=== PATIENT | male | born 1945 | race Caucasian/White ===

== ENCOUNTER 2022-04-17 05:51 | Inpatient (IN) ==
--- NOTE | 2022-03-24 15:05 | PAT Medication Instructions ---
Medication Instructions Date of Service March 24, 2022 Home Medications Medication Instructions Recorded oxycodone-acetaminophen 5 mg-325 1 tab PO Q6H PRN pain #30 tabs 03/10/ mg tablet (Percocet) albuterol sulfate 90 mcg/actuation aerosol inhaler 2 puff inhalation QID PRN aspirin 81 mg tablet,delayed release 81 mg PO QAM cholecalciferol (vitamin D3) 25 mcg (1,000 unit) capsule 25 mcg PO BID cilostazol 100 mg tablet 100 mg PO BID fluticasone 500 mcg-salmeterol 50 mcg/dose blistr powdr for inhalation (Advair Diskus) 2 inh inhalation BID lisinopril 10 mg tablet 10 mg PO QAM pravastatin 80 mg tablet 80 mg PO HS tiotropium bromide 2.5 mcg/actuation mist for inhalation (Spiriva Respimat) 2 inh inhalation QAM oxycodone-acetaminophen 5 mg-325 mg tablet (Percocet) 1 tab PO Q6H PRN ASK your prescriber and surgeon aspirin 81 mg tablet,delayed release 81 mg PO QAM cilostazol 100 mg tablet 100 mg PO BID DO NOT take the morning of surgery cholecalciferol (vitamin D3) 25 mcg (1,000 unit) capsule 25 mcg PO BID lisinopril 10 mg tablet 10 mg PO QAM Take morning of surgery With a small sip of water, OTHERWISE NOTHING TO EAT OR DRINK AFTER MIDNIGHT: albuterol sulfate 90 mcg/actuation aerosol inhaler 2 puff inhalation QID PRN(use if needed; please bring with you to hospital day of surgery if possible) fluticasone 500 mcg-salmeterol 50 mcg/dose blistr powdr for inhalation (Advair Diskus) 2 inh inhalation BID tiotropium bromide 2.5 mcg/actuation mist for inhalation (Spiriva Respimat) 2 inh inhalation QAM oxycodone-acetaminophen 5 mg-325 mg tablet (Percocet) 1 tab PO Q6H PRN(if needed) Take evening before surgery albuterol sulfate 90 mcg/actuation aerosol inhaler 2 puff inhalation QID PRN(if needed) cholecalciferol (vitamin D3) 25 mcg (1,000 unit) capsule 25 mcg PO BID fluticasone 500 mcg-salmeterol 50 mcg/dose blistr powdr for inhalation (Advair Diskus) 2 inh inhalation BID pravastatin 80 mg tablet 80 mg PO HS oxycodone-acetaminophen 5 mg-325 mg tablet (Percocet) 1 tab PO Q6H PRN(if needed) Other Notes If you have any questions please call us at [phone] or [phone] or [phone] or [phone]
--- NOTE | 2022-03-30 13:49 | Anesthesiology Consultation ---
Date of Service March 30, 2022 Assessment & Plan (1) Encounter for pre-operative examination: - Case discussed in detail with Dr. Muñoz who advised pt acceptable to proceed from respiratory and cardiac standpoint, does not need further evaluation or testing from his standpoint prior to surgery. - COVID screening: Per assessment on 03/30/2022: Travel screen negative, no known COVID-19 positive contacts or current COVID-19 related symptoms in past 2 weeks. Pt vaccinated. To surgeon's discretion if preop COVID testing needed. Chart Review Chart Review: Acceptable Risk for Surgery and Patient seen in Pre Admission Testing Teaching & Discussion Pre-Anesthesia Teaching/Discussion Notes: Instructed NPO after midnight before surgery, except medications with 15 cc of water. Medication instructions provide d according to the PAT guidelines. History Surgery Operation Date: 04/17/22 10:20 Proposed Procedures p Left Common Femoral Endarterectomy, Stent Left Iliac Artery - Florin Simon MD Height/Weight Height: 5 ft 6 in Weight: 62.8 kg Allergies Allergy/AdvReac Type Severity Reaction Status Date / Time No Known Allergies Allergy Verified 03/23/22 15:15 Medications Home Medications Medication Instructions Recorded Confirmed Last Taken albuterol sulfate 90 mcg/actuation 2 puff inhalation QID PRN 12/30/21 03/23/22 03/09/22 16:00 aerosol inhaler shortness of breath or wheezing aspirin 81 mg tablet,delayed 81 mg PO QAM 12/30/21 03/23/22 03/09/22 08:00 release cholecalciferol (vitamin D3) 25 25 mcg PO BID 12/30/21 03/23/22 03/09/22 18:00 mcg (1,000 unit) capsule cilostazol 100 mg tablet 100 mg PO BID 12/30/21 03/23/22 03/09/22 20:00 fluticasone 500 mcg-salmeterol 50 2 inh inhalation BID 12/30/21 03/23/22 03/09/22 20:00 mcg/dose blistr powdr for inhalation (Advair Diskus) lisinopril 10 mg tablet 10 mg PO QAM 12/30/21 03/23/22 03/09/22 08:00 pravastatin 80 mg tablet 80 mg PO HS 12/30/21 03/23/22 03/09/22 08:00 tiotropium bromide 2.5 2 inh inhalation QAM 12/30/21 03/23/22 03/09/22 08:00 mcg/actuation mist for inhalation (Spiriva Respimat) oxycodone-acetaminophen 5 mg-325 1 tab PO Q6H PRN pain #30 tabs 03/10/22 03/23/22 Unknown mg tablet (Percocet) Past Medical History Medical History (Updated 03/31/22 @ 10:14 by Milvia Tran PA-C) Colon polyp COPD (chronic obstructive pulmonary disease) stable per pt, last rescue inhaler use this morning; uses rescue inhaler most days which is not new per pt Coronary artery disease Depression ETOH abuse HX Hearing loss Hyperlipidemia Hypertension controlled, stable per pt Myocardial infarction "yrs ago" denies stents Peripheral artery disease Schizophrenia, schizo-affective type PT DENIES Patient denies h/o stroke, seizures, heart failure, DM, blood clots or blood transfusions. Exercise / Class Metabolic Activity II 4-5 Yardwork/Stairs/Walk up hill (denies CP or SOB with 1 FOS) Past Family History Family History Other No known health problems Past Surgical History Surgical History History of colonoscopy polyp removed History of intravascular stent placement bilateral stents lower extremity History of lung surgery right lower lobe resection due to abcess Past Anesthesia History No Hx of Anesthesia Complications and No Family Hx of Anesthesia Complications History of PONV No Hx of PONV and No Hx of Motion Sickness Social History Smoking Status: Light tobacco smoker tobacco type: cigarettes Smoking cigarettes per day: 4 CIGS A DAY-advised Do You Dip or Chew Tobacco: No Hx Alcohol Use: Yes Alcohol type: beer alcohol intake frequency: a few times a week Alcohol Intake Frequency Comment: 4-5 BEER/WEEK CURRENTLY Hx Substance Use: No substance use type: does not use Review of Systems Patient denies chest pain, shortness of breath, dyspnea on exertion, snoring, witnessed apneas, reflux, fever, chills, cough, wheezing, or palpitations. Physical Exam Vital Signs Vitals BP 137/80 P 97 TEMP 98.4 SP02 95% on RA RESP 17 Physical Full cervical extension range of motion without pain TMD 3.5 finger breadths Mallampati Score 1 Dentition: intact, two chipped teeth lower front; upper front removable plate; denies implants, caps/crowns or loose teeth Lungs: normal respiratory effort. Diminished RLL sounds; otherwise good air movement; end expiratory wheezes throughout, no rales or rhonchi Cardiac: regular rate and rhythm, no murmurs noted Carotid arteries: negative bruit bilat Lab Results Anesthesia Preop Results Results Anesthesia Widget: WBC 5.61 K/ul (4.8-10.8) 03/30/22 Hgb 12.0 g/dl (14.0-18.0) L 03/30/22 Hct 35.7 % (40.1-51.0) L 03/30/22 Plt 355 K/uL (130-400) 03/30/22 Na 136 mmol/L (136-145) 03/30/22 K 3.9 mmol/L (3.5-5.1) 03/30/22 Cl 101 mmol/L (98-107) 03/30/22 CO2 28 mmol/L (21-32) 03/30/22 BUN 11 mg/dl (6-23) 03/30/22 Creat 0.77 mg/dl (0.6-1.4) 03/30/22 Glucose Level 95 mg/dl (70-99(Fasting)) 03/30/22 PT 10.1 Seconds (9.0-12.0) 03/30/22 PTT 32.0 Seconds (21.0-31.0) H 03/30/22 INR 0.9 (0.9-1.1) 03/30/22 Blood Type O Positive 03/30/22 Antibody Screen NEGATIVE 03/30/22 Testing Electrocardiogram Date: 03/30/22 Sinus rhythm with occasional premature ventricular complexes, 96 rate bpm Left axis deviation Chest X-Ray Date: 03/30/22 Relative lucency of the right lung base is likely due to emphysema. Postoperative findings within the right lung are noted with volume loss. Old left rib fractures are present. There is no consolidation. No evidence for pulmonary edema. Cardiac size is normal. Mediastinal contours are normal. IMPRESSION: No acute cardiopulmonary findings. Emphysema Other Testing Aorta with runoff CTA 02/20/22 The heart is normal in size. Patient is status post aortobiiliac stent graft repair. There is also a right external iliac artery stent. The stents appear patent. No evidence for an abdominal aortic aneurysm. There appears to be a type II endoleak within the distal abdominal aorta from the adjacent lumbar radical best seen on image 220. However, there is no evidence for an abdominal aortic aneurysm. Extensive calcified plaque within the abdominal aorta and iliac arteries. Mild to moderate multifocal stenosis within the left external iliac artery with a focal area of greater than 50% stenosis within the mid left external iliac artery on image 298. The right external iliac artery stent is widely patent. Focal occlusion within the proximal inferior mesenteric artery with immediate reconstitution from collateral vesicles. The proximal celiac and superior mesenteric arteries are widely patent. There is mild calcified plaque within the patent bilateral renal arteries. The right common femoral artery is widely patent. Moderate to severe calcified plaque within the right superficial femoral artery demonstrating areas of mild to moderate multifocal stenosis. There is also a focal area of high-grade stenosis due to the severe calcified plaque within the distal right superficial femoral artery in image 597. This demonstrates up to 90% stenosis. Mild scattered calcified plaque within the right popliteal, anterior tibial, posterior tibial, and peroneal arteries without significant stenosis or occlusion. Up to 75% focal stenosis within the left common femoral artery best seen on image 351 due to the extensive calcified plaque. Focal high-grade stenosis at the left common femoral bifurcation of up to 80%. Scattered calcified plaque within the left superficial femoral artery demonstrating up to 80% stenosis within the distal left superficial femoral femoral artery best seen image 595. Focal area of 50% stenosis within the proximal left popliteal artery on image 728 due to the calcified plaque. Mild scattered calcified plaque within the anterior tibial, posterior tibial, and peroneal arteries without high-grade stenosis or occlusion. A few linear scarlike densities at the right lung base. No suspicious lytic are blastic osseous lesions. There are 2 hypodense lesions within the left hepatic lobe with the largest measuring 9 mm. These are technically too small to characterize but favor cysts. The spleen, adrenal glands, pancreas, gallbladder, and kidneys are suboptimally assessed due to the motion artifact but appears to be unremarkable. No hydronephrosis. No retroperitoneal lymphadenopathy. No pelvic free fluid. Mild bladder wall thickening. This is likely due to chronic outlet obstruction from the enlarged prostate gland. No bowel wall thickening or obstruction. Normal appendix. Moderate well-formed stool within the colon. IMPRESSION: 1. Status post aortobiiliac stent graft repair. The stent appears patent. There is evidence for a type II endoleak within the aorta. However, the abdominal aorta remains normal in caliber. 2. Focal area of high-grade stenosis within the distal right superficial femoral artery of approximately 90%. 3. Multifocal areas of stenosis within the left common femoral and left superficial femoral artery of up to 80% as described above. 4. No high-grade stenosis or occlusion within the bilateral calf arteries. 5. Additional findings as described above. LE duplex artery 01/09/22 1. Extensive atherosclerotic disease with monophasic waveforms, no elevated velocities are seen, however decreased velocities in parvus tardus morphology are seen most prominently in the calf vessels. 2. Ankle brachial indices indicating moderate stenosis on the right and severe stenosis on the left.
[2022-04-17] MEDS ORDERED: LACTATED RINGER'S 1,000 ML IV SCH (06:00)
[2022-04-17] MEDS ORDERED: ceFAZolin 1000MG 1,000 MG/7.5 ML SYR IV SCH (06:00)
[2022-04-17] MEDS ORDERED: fentaNYL citrate 100 MCG/2 ML VIAL ONE ×2 (06:58→09:55)
[2022-04-17] MEDS ORDERED: BUPIVACAINE 0.5 % 5 MG/1 ML MPF 30ML VIAL ONE (07:10)
[2022-04-17] MEDS ORDERED: HEPARIN SOD (PORCINE) 5,000 UNITS/ML VIAL ONE (07:10)
[2022-04-17] MEDS ORDERED: ceFAZolin 330 MG/ML 1 GM VIAL ONE (07:11)
[2022-04-17] MEDS ORDERED: LIDOCAINE 1%/EPINEPHRINE 1:100,000 50 ML VIAL ONE (07:11)
[2022-04-17] MEDS ORDERED: THROMBIN 5000 UNITS KIT ONE (07:11)
[2022-04-17] MEDS ORDERED: GELATIN SPONGE SZ 100 ONE (07:11)
[2022-04-17] MEDS ORDERED: THROMBIN FOR SOLN 20000 UNIT KIT ONE ×2 (07:22→07:56)
--- NOTE | 2022-04-17 07:22 | History & Physical Report ---
Date of Service April 17, 2022 Assessment & Plan (1) Peripheral arterial disease: Plan: Patient for a right common femoral artery endarterectomy and stenting of left iliac artery. I have discussed the risks options and benefits of the procedure with the patient. The patient understands the risks options and benefits and agrees to the procedure. History of Present Illness Chief Complaint: Bialteral claudication Primary Care Provider: Michael Armijo, [employer] Mr. Mcnair is an elderly male who presented as a new patient in consultation for peripheral arterial disease and left leg pain. Patient states that he underwent a procedure in 2018 at the [facility] to "open up the arteries in his right leg." According to records provided by the referring provider, patient underwent a right common femoral artery endarterectomy, as well as bilateral kissing iliac stents. According to the patient he never had a follow-up visit there, and his stents were never looked at since his procedure. He states that he was doing fine and his right leg claudication symptoms had improved considerably since his procedure, until about 8 months ago when he began to develop severe pain in his left leg. Patient describes this pain as constant, but worse when standing for long periods of time, and when walking. He states after walking only a short distance, he has to stop and rest for about 5 minutes and then is able to walk again. He states the pain never completely goes away but does reduce somewhat when he rests. He states that the pain is there 24 hours a day and does keep him awake at night and the pain runs from his groin all the way to his foot. He describes this as a toothache. He states it is not better or worse with any position or when elevating his leg. He denies any discoloration of the feet or toes, nonhealing wounds or ulcerations. He admits some occasional tingling in the leg, but denies particular numbness. He denies headache, fever, chest pain, shortness of breath, dizziness, abdominal pain, nausea, vomiting, rest pain, other concerns. He was seen by interventional car diology at the [facility] about a week ago, and advised that he would not benefit from endovascular treatment of the occluded left common iliac stent. He had an arteriogram which showed a right common femoral artery stenosis and left iliac artery stenosis Allergies Allergy/AdvReac Type Severity Reaction Status Date / Time No Known Allergies Allergy Verified 04/17/22 06:28 Home Medications Medication Instructions Recorded Confirmed Type albuterol sulfate 90 mcg/actuation 2 puff inhalation QID PRN 12/30/21 04/17/22 History aerosol inhaler shortness of breath or wheezing aspirin 81 mg tablet,delayed 81 mg PO QAM 12/30/21 04/17/22 History release cholecalciferol (vitamin D3) 25 25 mcg PO BID 12/30/21 04/17/22 History mcg (1,000 unit) capsule cilostazol 100 mg tablet 100 mg PO BID 12/30/21 04/17/22 History fluticasone 500 mcg-salmeterol 50 2 inh inhalation BID 12/30/21 04/17/22 History mcg/dose blistr powdr for inhalation (Advair Diskus) lisinopril 10 mg tablet (Zestril) 10 mg PO QAM 12/30/21 04/17/22 History pravastatin 80 mg tablet 80 mg PO HS 12/30/21 04/17/22 History tiotropium bromide 2.5 2 inh inhalation QAM 12/30/21 04/17/22 History mcg/actuation mist for inhalation (Spiriva Respimat) Past Med/Surg History Medical History Colon polyp COPD (chronic obstructive pulmonary disease) stable per pt, last rescue inhaler use this morning; uses rescue inhaler most days which is not new per pt Coronary artery disease Depression ETOH abuse HX Hearing loss Hyperlipidemia Hypertension controlled, stable per pt Myocardial infarction "yrs ago" denies stents Peripheral artery disease Schizophrenia, schizo-affective type PT DENIES Surgical History History of colonoscopy polyp removed History of intravascular stent placement bilateral stents lower extremity History of lung surgery right lower lobe resection due to abcess Family History Other No known health problems Social History Smoking Status: Current every day smoker Cigarettes Per Day: 4-5 per day; Second Hand Exposure: No; Do You Dip or Chew Tobacco: No; Hx Alcohol Use: Yes Alcohol type: beer Hx Substance Use: No Preferred Language: Venezuelan Communication Ability: Effective Hearing Ability: Use of Hearing Aid Hide Cleaner Required: No Beliefs That Will Affect Care: None Current Living Situation: Significant Other Current Living Situation Comment: Rachel- girlfriend current occupational status: retired Other Information That Helps Us Care for You: No Feels Safe at Home: Yes Safety Concerns: Feels Safe At This Time Assistive Devices: None Review of Systems All systems reviewed & are unremarkable except as noted in HPI & below Physical Exam Physical Exam: Constitutional: In general patient is a mildly chronically ill- appearing elderly male no distress. He is alert and oriented without any deficits. He is somewhat hard of hearing. His head is normocephalic and atraumatic. His carotids do not demonstrate a bruit. His heart is regular, his lungs are significantly decreased throughout with coarse breath sounds and expiratory wheezing. His abdomen is soft nontender with normoactive bowel sounds in all 4 quadrants. I am unable to appreciate a pulsatile mass. Brachial and radial pulses are +3. Right femoral pulse is +2. Left femoral pulse is nonpalpable. Right DP pulse is +1. PT is nonpalpable. Left foot pulses are nonpalpable. He has brisk capillary refill and warm pink toes bilaterally Results & Data ([facility]) Vital Signs (Past 12 Hours) Vital Signs Temp Pulse Resp BP BP Pulse Ox O2 Del Method 04/17/22 06:32 36.4 C L 101 H 20 150/79 H 145/84 H 97 Room Air 04/17/22 06:32 Room Air
[2022-04-17] MEDS ORDERED: ONDANSETRON INJ 2 MG/ML 2 ML VIAL IV PRN ×2 (07:24→13:50)
[2022-04-17] MEDS ORDERED: ATROPINE SULFATE 0.1 MG/ML 10ML SYR IV PRN (07:24)
[2022-04-17] MEDS ORDERED: PROMETHAZINE HCL 6.25 MG in SODIUM CHLORIDE 0.9% 50 ML IV PRN (07:24)
[2022-04-17] MEDS ORDERED: ePHEDrine sulfate 50 MG/ML AMP IV PRN (07:24)
[2022-04-17] MEDS ORDERED: PROPOFOL IV EMULSION 10 MG/ML 20 ML VIAL IV ONE (08:39)
[2022-04-17] MEDS ORDERED: LIDOCAINE 2% MPF LOCAL 5 ML VIAL INFIL ONE (08:39)
[2022-04-17] MEDS ORDERED: GLYCOPYRROLATE 0.2 MG/ML VIAL ONE (08:39)
[2022-04-17] MEDS ORDERED: ROCURONIUM BROMIDE 10 MG/ML 5 ML VIAL IV ONE ×3 (08:39→10:41)
[2022-04-17] MEDS ORDERED: NEOSTIGMINE METHYLSULFATE 1 MG/ML 10ML VIAL ONE (08:39)
[2022-04-17] MEDS ORDERED: ONDANSETRON INJ 2 MG/ML 2 ML VIAL ONE (08:39)
[2022-04-17] MEDS ORDERED: LARYING-O-JET KIT (LTA) ONE (08:39)
[2022-04-17] MEDS ORDERED: VISIPAQUE IV ONE ×2 (08:46→10:51)
[2022-04-17] MEDS ORDERED: ALBUTEROL HFA INHALER 8.5 GM ONE (09:40)
[2022-04-17] MEDS ORDERED: PHENYLEPHRINE HCL 10 MG/ML VIAL ONE (09:43)
[2022-04-17] MEDS ORDERED: HEPARIN SOD (PORCINE) 1000 UNIT/ML ONE (09:46)
[2022-04-17] MEDS ORDERED: SURGICEL ABSORB HEMOSTAT 2IN X 14IN TOP ONE (11:24)
[2022-04-17] MEDS ORDERED: PROTAMINE SULFATE 10 MG/ML 5 ML VIAL ONE (11:30)
--- NOTE | 2022-04-17 11:55 | Operative Report ---
Post Operative Report Pre & Post Diagnosis Operation Date: 04/17/22 08:05 Pre-Op Diagnosis: Left Iliac Occlusion, Left Common Femoral Occlusio Post-Op Diagnosis: Left Iliac Occlusion, Left Common Femoral Occlusio I identified the patient and participated in the time-out.: Yes Procedure Operation Date: 04/17/22 08:05 Actual Procedures p Left Common Femoral Endarterectomy, Stent Left External Iliac Artery(Left) - Florin Simon MD Surgeon Florin Simon MD Professor Of Violin Alejo,PAC Estimated Blood Loss 150 Findings Consistent with Post-Op Diagnosis Specimens none Anesthesia Type General Complications none Disposition Accompanied Patient To Recovery: No Disposition: Recovery Room Description of Procedure This is a 77-year-old gentleman who presented with severe claudication left lower extremity. He had bilateral iliac stents done in the past. Recent arteriography revealed the very tight stenosis of the left external iliac artery and occluded left common femoral artery. Endarterectomy the common femoral artery and stenting of the iliac was recommended. I have discussed the risks options and benefits of the procedure with the patient. The patient understands the risks options and benefits and agrees to the procedure. I attest to the content of the Intraoperative Record and any orders documented therein. Any exceptions are noted below.
[2022-04-17] MEDS: fentaNYL citrate 100 MCG/2 ML VIAL IV PRN ×2 (12:22→12:30)
--- NOTE | 2022-04-17 12:52 | Anesthesiology Progress Note ---
Date of Service April 17, 2022 Anesthesia Post Procedure Vital Signs Vital Signs: Temp Pulse Pulse Resp BP BP Pulse Ox 04/17/22 12:30 81 20 146/84 H 100 04/17/22 12:40 87 14 145/78 H 98 04/17/22 12:20 82 16 141/99 H 100 04/17/22 12:12 37 C 85 22 153/97 H 100 04/17/22 06:32 36.4 C L 101 H 20 150/79 H 145/84 H 97 04/17/22 06:32 O2 Del Method O2 Flow Rate 04/17/22 12:30 Oxymask 5 04/17/22 12:40 Oxymask 2 04/17/22 12:20 Oxymask 5 04/17/22 12:12 Oxymask 11 04/17/22 06:32 Room Air 04/17/22 06:32 Room Air Transfer of Care Handoff Completed per policy Notes Mental Status: alert / awake / arousable Patient Amnestic to Procedure: Yes Nausea / Vomiting: adequately controlled Pain: adequately controlled Airway Patency, RR, SpO2: stable & adequate BP & HR: stable & adequate Hydration State: stable & adequate Anesthetic Complications: no major complications apparent
[2022-04-17 13:10] LABS: Basophils # (auto) 0.06 K/uL (0-0.2); Basophils % (auto) 0.9 %; Eosinophils # (auto) 0.04 K/uL (0-0.50); Eosinophils % (auto) 0.6 %; Hematocrit (blood only) 30.4 % (40.1-51.0); Hemoglobin 10.5 g/dl (14.0-18.0); Immature Granulocytes # (auto) 0.04 K/uL (0.00-0.02); Immature Granulocytes % (auto) 0.6 %; Lymphocytes # (auto) 1.13 K/uL (1.2-3.4); Lymphocytes % (auto) 16.8 %; Mean Corpuscular Hemoglobin 32.6 pg (25.0-34.0); Mean Corpuscular Hgb Conc 34.5 g/dL (32.0-36.0); Mean Corpuscular Volume 94.4 fL (80.0-100.0); Mean Platelet Volume 8.8 fL (9.4-12.4); Monocytes # (auto) 0.57 K/uL (0.24-0.82); Monocytes % (auto) 8.5 %; Neutrophils % (auto) 72.6 %; Platelet Count 263 K/uL (130-400); RDW Coefficient of Variation 14.2 % (11.5-14.5); RDW Standard Deviation 48.8 fL (36.4-46.3); Red Blood Count 3.22 M/uL (4.63-6.08); White Blood Count 6.74 K/ul (4.8-10.8)
[2022-04-17] MEDS ORDERED: MoRPHine SULFATE 4 MG/ML 1 ML CARP\\VIAL IV PRN (13:50)
[2022-04-17] MEDS ORDERED: ALBUTEROL HFA 8 GM INHALER INH PRN (13:50)
[2022-04-17] MEDS: D5W AND 1/2NSS 1,000 ML IV SCH ×2 (14:23→21:36)
[2022-04-17] MEDS: oxyCODONE/ACETAMINOPHEN 5mg/325mg TAB PO PRN ×2 (15:36→21:32)
[2022-04-17] MEDS: ceFAZolin 1000MG 1,000 MG/7.5 ML SYR IV SCH (15:38)
--- NOTE | 2022-04-17 18:59 | Critical Care Consultation ---
Date of Consultation April 17, 2022 Assessment & Plan (1) Peripheral arterial disease: Impression: 77-year-old male presents to the ICU status post left common femoral endarterectomy with stent to the left external iliac artery for left iliac and common femoral artery occlusion. Neuro - [facility] ICU: Negative Cardiac - CADcontinue ASA, lisinopril, statin PADpatient found to have severe claudication of left lower extremity and had bilateral iliac stents done in the past. Now status post left common femoral endarterectomy with stent to the left external iliac artery -Management per surgical team -Continue cilostazol, ASA, statin -Percocet, morphine as needed Respiratory - COPDcurrently maintaining oxygen saturation on 2 L nasal cannula. Patient reports active smoking. Encourage cessation. Continue nebs as prescribed GI - Clear liquid diet RENAL/LYTES - D5 half NS at 125 mL/h - Strict I's and O's ENDO - No history of diabetes without disease, ICU hyperglycemic protocol HEME - No signs of bleeding, EBL 150. Follow-up CBC in a.m. ID - Continue empiric cefazolin LINES/IV ACCESS - Peripheral IV DVT PROPHYLAXIS - SCDs, Lovenox Thank you for allowing us to participate in the care of this patient. Please refer to my attending physician's documentation for any further recommendations. History of Present Illness Attending Physician: Florin Simon MD History of Present Illness Patient is a 77-year-old male who was recently found to have severe claudication of the left lower extremity due to PAD. He has had bilateral iliac stents done in the past but recent arterial graft revealed stenosis of the left external iliac artery and occluded left common femoral artery. Today he presents to the ICU postop for a scheduled left common femoral endarterectomy with stent to the left external [place] iliac artery per vascular surgery. On arrival to the ICU the patient is alert and oriented and hemodynamically stable. He reports mild pain to the left groin at the site of the surgery. He reports normal sensation to the left lower extremity. He denies any headache, dizziness, recent illness or fevers, cough or congestion, sore throat, abdominal pain, shortness of breath, chest pain or palpitations, nausea vomiting or diarrhea. Patient to be managed in the ICU overnight for now. Allergies Allergy/AdvReac Type Severity Reaction Status Date / Time No Known Allergies Allergy Verified 04/17/22 06:28 Home Medications Medication Instructions Recorded Confirmed Type albuterol sulfate 90 mcg/actuation 2 puff inhalation QID PRN 12/30/21 04/17/22 History aerosol inhaler shortness of breath or wheezing aspirin 81 mg tablet,delayed 81 mg PO QAM 12/30/21 04/17/22 History release cholecalciferol (vitamin D3) 25 25 mcg PO BID 12/30/21 04/17/22 History mcg (1,000 unit) capsule cilostazol 100 mg tablet 100 mg PO BID 12/30/21 04/17/22 History fluticasone 500 mcg-salmeterol 50 2 inh inhalation BID 12/30/21 04/17/22 History mcg/dose blistr powdr for inhalation (Advair Diskus) lisinopril 10 mg tablet (Zestril) 10 mg PO QAM 12/30/21 04/17/22 History pravastatin 80 mg tablet 80 mg PO HS 12/30/21 04/17/22 History tiotropium bromide 2.5 2 inh inhalation QAM 12/30/21 04/17/22 History mcg/actuation mist for inhalation (Spiriva Respimat) Patient History Medical History (Updated 04/17/22 @ 19:12 by RACHANA Alvares) Colon polyp COPD (chronic obstructive pulmonary disease) stable per pt, last rescue inhaler use this morning; uses rescue inhaler most days which is not new per pt Coronary artery disease Depression ETOH abuse HX Hearing loss Hyperlipidemia Hypertension controlled, stable per pt Myocardial infarction "yrs ago" denies stents Peripheral artery disease Schizophrenia, schizo-affective type PT DENIES Surgical History History of colonoscopy polyp removed History of intravascular stent placement bilateral stents lower extremity History of lung surgery right lower lobe resection due to abcess Family History Other No known health problems Social History (Updated 04/17/22 @ 07:24 by Owen Verma MD) Smoking Status: Current every day smoker Cigarettes Per Day: 4-5 per day; Second Hand Exposure: No; Do You Dip or Chew Tobacco: No; Hx Alcohol Use: Yes Alcohol type: beer Hx Substance Use: No Preferred Language: Maori Communication Ability: Effective Hearing Ability: Use of Hearing Aid Chiller Hand Required: No Beliefs That Will Affect Care: None Current Living Situation: Significant Other Current Living Situation Comment: Rachel- girlfriend current occupational status: retired Other Information That Helps Us Care for You: No Feels Safe at Home: Yes Safety Concerns: Feels Safe At This Time Assistive Devices: None Review of Systems Review of Systems: All systems reviewed & are unremarkable except as noted in HPI & below Physical Exam Constitutional: cooperative and comfortable; no acute distress Eyes: PERRL, conjunctivae normal, anicteric sclerae ENMT: external ear and nose normal, oropharynx normal Neck: trachea midline, no thyromegaly Respiratory: no respiratory distress, no labored breathing and no cough Bilateral wheezes auscultated. Symmetrical chest wall movement. No stridor Cardiovascular: RRR, no murmur, no edema Vessels: no JVD Extremities: normal capillary refill; no edema Gastrointestinal (Abdomen): normal bowel sounds, soft, nontender, no hepatosplenomegaly Musculoskeletal: no cyanosis or clubbing, extremities motor strength 5/5 Skin: no rashes, warm and dry Neurologic: PERRL, EOMI, accommodation nl, no face palsy, no dysarthria Psychiatric: A+Ox3, euthymic affect Results & Data Results & Data ([facility]) Vital Signs (Past 12 Hours) Vital Signs Temp Pulse Pulse Resp BP BP Pulse Ox 04/17/22 18:00 94 H 22 98 04/17/22 18:00 132/81 04/17/22 17:44 103 H 24 98 04/17/22 17:44 138/85 04/17/22 17:00 100 H 21 99 04/17/22 17:00 136/85 04/17/22 16:30 156/92 H 04/17/22 16:30 105 H 17 96 04/17/22 16:00 97 H 15 98 04/17/22 16:00 167/104 H 04/17/22 16:00 04/17/22 15:30 96 H 15 100 04/17/22 15:30 166/90 H 04/17/22 15:00 97 H 17 100 04/17/22 15:00 170/98 H 04/17/22 14:30 96 H 16 98 04/17/22 14:30 148/83 H 04/17/22 14:00 04/17/22 14:00 89 17 132/71 95 04/17/22 14:00 36.7 C 04/17/22 13:30 36.7 C 97 H 20 162/89 H 98 04/17/22 13:20 77 18 156/90 H 98 04/17/22 13:10 89 16 152/92 H 97 04/17/22 13:00 81 16 153/89 H 96 04/17/22 12:50 36.6 C 88 21 146/94 H 92 04/17/22 12:30 81 20 146/84 H 100 04/17/22 12:40 87 14 145/78 H 98 04/17/22 12:20 82 16 141/99 H 100 04/17/22 12:12 37 C 85 22 153/97 H 100 Pulse Ox O2 Del Method O2 Del Method O2 Flow Rate O2 Flow Rate 04/17/22 18:00 04/17/22 18:00 04/17/22 17:44 04/17/22 17:44 04/17/22 17:00 04/17/22 17:00 04/17/22 16:30 04/17/22 16:30 04/17/22 16:00 04/17/22 16:00 04/17/22 16:00 99 Nasal Cannula 2 04/17/22 15:30 04/17/22 15:30 04/17/22 15:00 04/17/22 15:00 04/17/22 14:30 04/17/22 14:30 04/17/22 14:00 Nasal Cannula 2 04/17/22 14:00 Nasal Cannula 2 04/17/22 14:00 04/17/22 13:30 Nasal Cannula 2 04/17/22 13:20 Nasal Cannula 2 04/17/22 13:10 Nasal Cannula 2 04/17/22 13:00 Nasal Cannula 2 04/17/22 12:50 Room Air 04/17/22 12:30 Oxymask 5 04/17/22 12:40 Oxymask 2 04/17/22 12:20 Oxymask 5 04/17/22 12:12 Oxymask 11 Coding Level of Care Code 00358 Inpt Consult Level 3 Diagnoses Peripheral arterial disease I73.9
[2022-04-17] MEDS: CHOLECALCIFEROL 1,000 UNITS 25 MCG TAB PO SCH (21:33)
[2022-04-17] MEDS: cilostazoL 100 MG TAB PO SCH (21:33)
[2022-04-17] MEDS: PRAVASTATIN SOD 40 MG TAB PO SCH (21:34)
[2022-04-18] MEDS: ceFAZolin 1000MG 1,000 MG/7.5 ML SYR IV SCH (00:28)
[2022-04-18 06:09] LABS: Basophils # (auto) 0.04 K/uL (0-0.2); Basophils % (auto) 0.4 %; Eosinophils # (auto) 0.02 K/uL (0-0.50); Eosinophils % (auto) 0.2 %; Hemoglobin 10.6 g/dl (14.0-18.0); Immature Granulocytes # (auto) 0.03 K/uL (0.00-0.02); Immature Granulocytes % (auto) 0.3 %; Lymphocytes # (auto) 1.17 K/uL (1.2-3.4); Mean Corpuscular Hgb Conc 34.2 g/dL (32.0-36.0); Mean Corpuscular Volume 93.7 fL (80.0-100.0); Mean Platelet Volume 8.8 fL (9.4-12.4); Monocytes # (auto) 1.03 K/uL (0.24-0.82); Monocytes % (auto) 11.4 %; Neutrophils # (auto) 6.74 K/uL (1.4-6.5); Neutrophils % (auto) 74.7 %; Platelet Count 249 K/uL (130-400); RDW Standard Deviation 48.7 fL (36.4-46.3); Red Blood Count 3.31 M/uL (4.63-6.08); White Blood Count 9.03 K/ul (4.8-10.8)
[2022-04-18 06:45] LABS: BUN Creatinine Ratio 12.1 (10-20); Calcium 8.2 mg/dl (8.5-10.1); Creatinine Clr Calc Pharmacy 83.1 ml/min; Est GFR (African American) 107.3 ml/min; Est GFR (Non-African American) 92.6 ml/min; Potassium 3.6 mmol/L (3.5-5.1)
[2022-04-18] MEDS: oxyCODONE/ACETAMINOPHEN 5mg/325mg TAB PO PRN ×2 (07:53→23:02)
--- NOTE | 2022-04-18 08:31 | Surgery Progress Note ---
Date of Service April 18, 2022 Assessment & Plan (1) Aortoiliac occlusive disease: Plan: POD #1 after L comm fem endarterectomy with patch and L ext iliac stenting. Doing well post op. Mildly tachy at 102, but asymtpomatic. other vss. Has ambulated to BR with walker. Will have pt eval by OT/PT today. Possible d/c tomorrow. (2) Peripheral arterial disease: Plan: See above Admission and Anticipated Discharge Date Admission Date: April 17, 2022 Subjective 77 yo m POD #1 after L common femoral endarterectomy with bovine patch and stenting of L external iliac artery, seen in f/u today. Pt admits pain in L groin. Denies DODGE, chest pain, SOB, abd pain, N/V, lower leg or foot pain. No other new complaints. Review of Systems Review of Systems: All systems reviewed & are unremarkable except as noted in HPI & below Physical Exam Constitutional: WD/WN, vitals as above healthy appearing; not in distress Respiratory: normal respiratory effort; no respiratory distress Auscultation: + diminished lung sounds and + wheezes Cardiovascular: Rate/Rhythm: regular rhythm and + tachycardic (mildly tachycardic) Vessels: posterior tibial pulses present (LLE +1); + abnormal peripheral pulses Extremities: normal capillary refill; no edema Gastrointestinal (Abdomen): Inspection/Auscultation: abdomen normal to inspection and normal bowel sounds Percussion/Palpation: abdomen soft; abdomen nontender Musculoskeletal: no cyanosis or clubbing, extremities motor strength 5/5 Skin: + incision (prevena vac to L groin incision functioning appropriately.) R groin puncture soft, no hematoma. Psychiatric: A+Ox3, euthymic affect Results & Data ([facility]) Vital Signs (Past 12 Hours) Vital Signs Temp Pulse Resp BP Pulse Ox Pulse Ox O2 Del Method 04/18/22 08:00 99 Nasal Cannula 04/18/22 06:00 102 H 15 91 04/18/22 06:00 116/71 04/18/22 05:30 98 H 14 97 04/18/22 05:30 125/76 04/18/22 05:00 97 H 18 100 04/18/22 05:00 123/84 04/18/22 04:30 127/78 04/18/22 04:30 96 H 13 97 04/18/22 04:00 116 H 19 90 04/18/22 04:00 36.8 C 145/98 H 04/18/22 03:30 98 H 14 88 L 04/18/22 03:30 124/76 04/18/22 03:00 96 H 19 98 04/18/22 03:00 141/87 H 04/18/22 02:31 182/109 H 04/18/22 02:31 109 H 24 97 04/18/22 02:00 98 H 15 96 04/18/22 02:00 126/80 04/18/22 01:30 95 H 15 99 04/18/22 01:30 133/80 04/18/22 01:00 105 H 15 97 04/18/22 01:00 131/84 04/18/22 00:30 36.6 C 138/84 04/18/22 00:30 101 H 21 98 04/18/22 00:00 102 H 16 91 04/18/22 00:00 125/78 04/17/22 23:30 127/77 04/17/22 23:30 104 H 17 91 04/17/22 23:01 109 H 26 H 94 04/17/22 23:01 125/88 04/17/22 23:00 109 H 19 92 04/17/22 22:30 98 H 22 94 04/17/22 22:30 125/77 04/17/22 22:00 101 H 21 93 04/17/22 22:00 129/78 04/17/22 21:30 104 H 26 H 94 04/17/22 21:30 129/82 04/17/22 21:00 98 H 16 91 04/17/22 21:00 127/79 04/17/22 20:30 125/78 04/17/22 20:30 92 H 21 94 04/18/22 00:00 98 H 04/17/22 23:59 97 Nasal Cannula O2 Flow Rate 04/18/22 08:00 2 04/18/22 06:00 04/18/22 06:00 04/18/22 05:30 04/18/22 05:30 04/18/22 05:00 04/18/22 05:00 04/18/22 04:30 04/18/22 04:30 04/18/22 04:00 04/18/22 04:00 04/18/22 03:30 04/18/22 03:30 04/18/22 03:00 04/18/22 03:00 04/18/22 02:31 04/18/22 02:31 04/18/22 02:00 04/18/22 02:00 04/18/22 01:30 04/18/22 01:30 04/18/22 01:00 04/18/22 01:00 04/18/22 00:30 04/18/22 00:30 04/18/22 00:00 04/18/22 00:00 04/17/22 23:30 04/17/22 23:30 04/17/22 23:01 04/17/22 23:01 04/17/22 23:00 04/17/22 22:30 04/17/22 22:30 04/17/22 22:00 04/17/22 22:00 04/17/22 21:30 04/17/22 21:30 04/17/22 21:00 04/17/22 21:00 04/17/22 20:30 04/17/22 20:30 04/18/22 00:00 04/17/22 23:59 2
[2022-04-18] MEDS: ENOXAPARIN INJ 30 MG/0.3 ML SYR SQ SCH ×2 (08:38→21:02)
[2022-04-18] MEDS: ASPIRIN 81 MG ECTAB PO SCH (08:40)
[2022-04-18] MEDS: CHOLECALCIFEROL 1,000 UNITS 25 MCG TAB PO SCH ×2 (08:41→21:01)
[2022-04-18] MEDS: FLUTICASONE/VILANTEROL 200/25MCG 14 PUFFS/INHALER INH SCH (08:41)
[2022-04-18] MEDS: cilostazoL 100 MG TAB PO SCH ×2 (08:41→21:02)
[2022-04-18] MEDS: UMECLIDINIUM BROMIDE 62.5MCG/BLISTER 7 PUFFS/INHALER INH SCH (08:43)
[2022-04-18] MEDS: lisinopril 10 MG TAB PO SCH (08:43)
[2022-04-18] MEDS: CLOPIDOGREL BISULFATE 75 MG TAB PO SCH (12:41)
[2022-04-18] MEDS: PRAVASTATIN SOD 40 MG TAB PO SCH (21:01)
[2022-04-19] MEDS: ENOXAPARIN INJ 30 MG/0.3 ML SYR SQ SCH (09:03)
[2022-04-19] MEDS: cilostazoL 100 MG TAB PO SCH (09:03)
[2022-04-19] MEDS: ASPIRIN 81 MG ECTAB PO SCH (09:04)
[2022-04-19] MEDS: lisinopril 10 MG TAB PO SCH (09:04)
[2022-04-19] MEDS: CHOLECALCIFEROL 1,000 UNITS 25 MCG TAB PO SCH (09:04)
[2022-04-19] MEDS: CLOPIDOGREL BISULFATE 75 MG TAB PO SCH (09:04)
[2022-04-19] MEDS: FLUTICASONE/VILANTEROL 200/25MCG 14 PUFFS/INHALER INH SCH (09:04)
[2022-04-19] MEDS: UMECLIDINIUM BROMIDE 62.5MCG/BLISTER 7 PUFFS/INHALER INH SCH (09:05)
--- NOTE | 2022-04-19 13:19 | Surgery Progress Note ---
Date of Service April 19, 2022 Assessment & Plan (1) Aortoiliac occlusive disease: Plan: POD #2 after L comm fem endarterectomy with patch and L ext iliac stenting. Doing well post op. Mildly tachycardic, but asymtpomatic. other vss. Has ambulated to with and without walker. Discussed with stevie Bermeo for d/c home today. (2) Peripheral arterial disease: Plan: See above Admission and Anticipated Discharge Date Admission Date: April 17, 2022 Subjective 77 yo m POD #2 after L common femoral endarterectomy with bovine patch and stenting of L external iliac artery, seen in f/u today. Pt admits pain in L groin, but states is improved. Has been ambulating with and without walker. Was eval by PT/OT, recommended home without services. Denies DODGE, chest pain, SOB, abd pain, N/V, lower leg or foot pain. No other new complaints. Review of Systems Review of Systems: All systems reviewed & are unremarkable except as noted in HPI & below Physical Exam Constitutional: WD/WN, vitals as above healthy appearing; not in distress Respiratory: normal respiratory effort; no respiratory distress Auscultation: + diminished lung sounds and + wheezes Cardiovascular: Rate/Rhythm: regular rhythm and + tachycardic (mildly tachycardic) Vessels: posterior tibial pulses present (LLE +1); + abnormal peripheral pulses Extremities: normal capillary refill; no edema Gastrointestinal (Abdomen): Inspection/Auscultation: abdomen normal to inspection and normal bowel sounds Percussion/Palpation: abdomen soft; abdomen nontender Musculoskeletal: no cyanosis or clubbing, extremities motor strength 5/5 Skin: + incision (prevena vac to L groin incision functioning appropriately.) Psychiatric: A+Ox3, euthymic affect Results & Data ([facility]) Vital Signs (Past 12 Hours) Vital Signs Temp Pulse Resp BP Pulse Ox O2 Del Method 04/19/22 11:24 37.0 C 116 H 18 111/70 94 Room Air 04/19/22 08:00 Room Air 04/19/22 07:17 37.0 C 107 H 17 125/77 93 Room Air
--- NOTE | 2022-04-21 08:04 | Discharge Summary ---
Date of Service April 21, 2022 Admission HPI Per Admitting Provider Mr. Mcnair is an elderly male who presented as a new patient in consultation for peripheral arterial disease and left leg pain. Patient states that he underwent a procedure in 2018 at the [facility] to "open up the arteries in his right leg." According to records provided by the referring provider, patient underwent a right common femoral artery endarterectomy, as well as bilateral kissing iliac stents. According to the patient he never had a follow-up visit there, and his stents were never looked at since his procedure. He states that he was doing fine and his right leg claudication symptoms had improved considerably since his procedure, until about 8 months ago when he began to develop severe pain in his left leg. Patient describes this pain as constant, but worse when standing for long periods of time, and when walking. He states after walking only a short distance, he has to stop and rest for about 5 minutes and then is able to walk again. He states the pain never completely goes away but does reduce somewhat when he rests. He states that the pain is there 24 hours a day and does keep him awake at night and the pain runs from his groin all the way to his foot. He describes this as a toothache. He states it is not better or worse with any position or when elevating his leg. He denies any discoloration of the feet or toes, nonhealing wounds or ulcerations. He admits some occasional tingling in the leg, but denies particular numbness. He denies headache, fever, chest pain, shortness of breath, dizziness, abdominal pain, nausea, vomiting, rest pain, other concerns. He was seen by interventional cardiology at the [facility] about a week ago, and advised that he would not benefit from endovascular treatment of the occluded left common iliac stent. He had an arteriogram which showed a right common femoral artery stenosis and left iliac artery stenosis Admission Exam Per Admitting Provider Constitutional: In general patient is a mildly chronically ill-appearing elderly male no distress. He is alert and oriented without any deficits. He is somewhat hard of hearing. His head is normocephalic and atraumatic. His carotids do not demonstrate a bruit. His heart is regular, his lungs are significantly decreased throughout with coarse breath sounds and expiratory wheezing. His abdomen is soft nontender with normoactive bowel sounds in all 4 quadrants. I am unable to appreciate a pulsatile mass. Brachial and radial pulses are +3. Right femoral pulse is +2. Left femoral pulse is nonpalpable. Right DP pulse is +1. PT is nonpalpable. Left foot pulses are nonpalpable. He has brisk capillary refill and warm pink toes bilaterally Principal Diagnosis 1. s/p LLE common femoral endarterectomy with bovine patch and L external iliac stenting 2. L common femoral artery occlusion 3. Aortoiliac occlusive disease Discharge Exam Constitutional WD/WN, vitals as above healthy appearing; not in distress Respiratory normal respiratory effort; no respiratory distress Auscultation: + diminished lung sounds and + wheezes Cardiovascular Rate/Rhythm: regular rhythm and + tachycardic (mildly tachycardic) Vessels: posterior tibial pulses present (LLE +1); + abnormal peripheral pulses Extremities: normal capillary refill; no edema Gastrointestinal (Abdomen) Inspection/Auscultation: abdomen normal to inspection and normal bowel sounds Percussion/Palpation: abdomen soft; abdomen nontender Musculoskeletal no cyanosis or clubbing, extremities motor strength 5/5 Skin + incision (prevena vac to L groin incision functioning appropriately.) Psychiatric A+Ox3, euthymic affect Discharge Data Allergies Allergy/AdvReac Type Severity Reaction Status Date / Time No Known Allergies Allergy Verified 04/17/22 06:28 Consultations 04/17/22 13:50 Consult Radiation Therapy Technologist Routine Procedures Performed Operation Date: 04/17/22 08:05 Actual Procedures p Left Common Femoral Endarterectomy, Stent Left External Iliac Artery(Left) - Florin Simon MD Ordered Studies 04/17/22 07:11 EV angio UE LT Routine Hospital Course (1) Aortoiliac occlusive disease: POD #2 after L comm fem endarterectomy with patch and L ext iliac stenting. Doing well post op. Mildly tachycardic, but asymtpomatic. other vss. Has ambulated to with and without walker. Discussed with stevei Bermeo for d/c home today. (2) Peripheral arterial disease: See above Total Time Total Time Spent Total Time Spent (In Minutes): 0 Discharge Plan Discharge Items Patient Disposition: Home - Self-Care Reason For Visit: Left Iliac Occlusion, Left Common Femoral Occlusio Discharge Diagnosis: 1. s/p Left Common femoral endarterectomy with patch and Left external iliac artery stenting 2. L common femoral artery occlusion, Aortoiliac occlusive disease Condition on Discharge: Good Activity: Per Instructions section Non-emergency contact: Primary Care Provider Call non-emergency contact if: you have any medication questions, your pain is not controlled, your pain is concerning for you, you have a fever, your wound has increased redness and your wound has increased drainage Follow-up/Referrals: Florin Simon MD [Physician] - (Follow up with Dr Simon or Mary Carmen Toney PA-C, in 2 weeks for staple removal) Michael Armijo NP-C [Primary Care Provider] - (Follow up with PCP within 2 weeks) Diet: Heart Healthy Addtl Attending Provider Instructions: 1. May shower, no bathing 2. When battery for wound vac to Left groin dies, just remove and dispose of in garbage. 3. May remove dressing from Right groin in 2 days, then no further dressing required. 4. No lifting more than 10 lbs x 2 weeks. ACTIVITY RECOMMENDATIONS: See Above SPECIAL CARE INSTRUCTIONS: Call your doctor if: * Temperature above 101 degrees * Pain not relieved by pain medicine ordered * There is increased drainage or redness from any incision * You have any unanswered questions or concerns. Pending Studies at Discharge: No Stand-Alone Forms: My [facility] [place], Smoking Cessation Medications and DC Order Prescriptions: New clopidogrel 75 mg Tablet 75 mg PO QAM Qty: 30 11RF oxycodone-acetaminophen [Percocet] 5-325 mg Tablet 1 - 2 tab PO Q6H PRN (Reason: pain) Qty: 20 0RF Continued albuterol sulfate 90 mcg/actuation HFA aerosol inhaler 2 puff inhalation QID PRN (Reason: shortness of breath or wheezing) cholecalciferol (vitamin D3) 25 mcg (1,000 unit) capsule 25 mcg PO BID cilostazol 100 mg tablet 100 mg PO BID fluticasone propion-salmeterol [Advair Diskus] 500-50 mcg/dose blister with device 2 inh inhalation BID Spiriva Respimat 2.5 mcg/actuation mist 2 inh inhalation QAM aspirin 81 mg tablet,delayed release (DR/EC) 81 mg PO QAM lisinopril [Zestril] 10 mg tablet 10 mg PO QAM pravastatin 80 mg tablet 80 mg PO HS Discharge Orders: Discharge Order (Routine); Ordered 04/19/22 Ordered By: Mary Carmen Toney Admission Data Admit Date/Time: 04/17/22 07:24 Attending Provider: Florin Simon Admit Provider: Florin Simon Primary Care Provider: Michael Armijo Other Providers: Luc Moore ; Tiago Jordan ; Osmany Morales ; Jacob Galan ; Angel Alaniz ; Nasir Kathleen ; Bruce Sims ; Artur Roy ; Ashley Pickard Other Interventions: Discharge Summary Assessment (RN) Last Done: 04/19/22 14:14
== END 2022-04-19 16:00 | disposition home or self-care (01) | DRG 271 ==
LOC: ASU 05:51 → 1E 07:24 → 2E 04-18 10:01